=== PATIENT | female | born 1995 | race Two or more races ===

== ENCOUNTER → 2022-08-13 | Emergency (ER) | payer OTHER ==
[~2022-08-13] VITALS: Ht 172.7 cm; Wt 56.7 kg
== END | disposition home or self-care (01) ==
LOC: ER 16:37
DX: O20.9 Hemorrhage in early pregnancy, unspecified (principal); Z3A.01 Less than 8 weeks gestation of pregnancy

== ENCOUNTER 2022-11-17 09:02 | Outpatient (CLI) | payer OTHER | END 2022-11-17 10:04 | disposition home or self-care (01) | LOC: PRENATAL 09:02 | PROVIDERS: ATTEND Obstetrics & Gynecology Maternal & Fetal Medicine | DX: O35.9XX0 Maternal care for (suspected) fetal abnormality and damage, unspecified, not applicable or unspecified (principal); O35.3XX0 Maternal care for (suspected) damage to fetus from viral disease in mother, not applicable or unspecified; Z3A.20 20 weeks gestation of pregnancy ==

== ENCOUNTER 2023-02-13 08:50 | Outpatient (CLI) | payer OTHER | END 2023-02-13 12:08 | disposition home or self-care (01) | LOC: PRENATAL 08:50 | PROVIDERS: ATTEND Obstetrics & Gynecology Maternal & Fetal Medicine | DX: O26.849 Uterine size-date discrepancy, unspecified trimester (principal); O36.8199 Decreased fetal movements, unspecified trimester, other fetus; Z3A.32 32 weeks gestation of pregnancy ==

== ENCOUNTER 2023-03-19 10:44 | Inpatient (IN) | payer OTHER ==
[~2023-03-19] VITALS: Ht 167.6 cm; Wt 69.9 kg
[2023-03-31] MEDS ORDERED: PRENATAL TABLE1 EAC1 PO (06:01)
[2023-03-31 06:53] LABS: URINE APPEARANCE Clear; URINE BILIRRUBIN Negative (NEGATIVE); URINE BLOOD Negative; URINE COLOR Yellow; URINE GLUCOSE Negative (NEGATIVE); URINE LEUKOCYTE Moderate; URINE NITRATE Negative; URINE PROTEIN Negative (NEGATIVE); URINE UROBILINOGEN 0.2 E.U./dl
[2023-03-31 06:54] LABS: URINE EPITHELIAL CELLS 75.9 uL (0.0-38.8)
[2023-03-31 06:55] LABS: HEMATOCRIT 37.2 % (36.0-45.00); HEMOGLOBIN 12.5 g/dL (12.0-15.00); MEAN CELL VOLUME 97.2 fL (80.00-100.00); MEAN CORPUSCULAR HEMOGLOBIN 32.8 pg (27.00-32.0); MEAN CORPUSCULAR HGB CONC 33.7 g/dl (32.0-36.0); PLATELET COUNT 181 K/uL (150-450); RED BLOOD COUNT 3.82 M/uL (4.00-6.00); RED CELL DISTRIBUTION WIDTH 13.2 % (11.5-14.5)
[2023-03-31 07:11] LABS: INR 0.95; PARTIAL THROMBOPLASTIN TIME 26.2 SECONDS (22.0-34.0)
[2023-03-31 07:17] LABS: URINE RBC 0.7 uL (0.0-20.8)
[2023-04-01 00:29] LABS: HEMATOCRIT 36.3 % (36.0-45.00); HEMOGLOBIN 12.5 g/dL (12.0-15.00); MEAN CELL VOLUME 96.6 fL (80.00-100.00); MEAN CORPUSCULAR HEMOGLOBIN 33.2 pg (27.00-32.0); MEAN CORPUSCULAR HGB CONC 34.4 g/dl (32.0-36.0); PLATELET COUNT 199 K/uL (150-450); RED BLOOD COUNT 3.76 M/uL (4.00-6.00); RED CELL DISTRIBUTION WIDTH 13.3 % (11.5-14.5)
== END 2023-04-02 11:26 | disposition home or self-care (01) | DRG 807 ==
LOC: OB/GYN 03-31 05:23 → LDR 03-31 05:23 → OB/GYN 03-31 15:32
PROVIDERS: ADMIT Specialist; ATTEND Specialist
PROC: 10E0XZZ Delivery of Products of Conception, External Approach (ICD-10-PCS; principal; 2023-03-31)
PROC: 4A1HXCZ Monitoring of Products of Conception, Cardiac Rate, External Approach (ICD-10-PCS; 2023-03-31)
PROC: 3E033VJ Introduction of Other Hormone into Peripheral Vein, Percutaneous Approach (ICD-10-PCS; 2023-03-31)
DX: O80 Encounter for full-term uncomplicated delivery (principal); Z37.0 Single live birth; Z3A.39 39 weeks gestation of pregnancy; Z20.822 Contact with and (suspected) exposure to COVID-19

== ENCOUNTER 2025-04-30 10:44 | Emergency (ER) | payer OTHER ==
[~2025-04-30] VITALS: Ht 167.6 cm; Wt 59.0 kg
[~2025-04-30 10:44] MED LIST: PRENATAL TABLE1 EAC1 PO
[2025-04-30] MEDS ORDERED: FAMOTIDINE/PF 20 MG/2 ML VIAL IV ONE ×2 (12:45→16:30)
[2025-04-30] MEDS ORDERED: LACTOBACILLUS ACIDOPHILUS 1 CAP CAP PO ONE (12:45)
[2025-04-30] MEDS ORDERED: ONDANSETRON HCL 2 MG/ML VIAL IV ONE (12:45)
[2025-04-30] MEDS ORDERED: 0.9 % SODIUM CHLORIDE 1,000 ML IV ONE (12:45)
[2025-04-30 13:48] LABS: BASO % 0.2 % (0.1-1.2); EOS # 0.01 (0.04-0.54); EOS % 0.1 % (0.7-7.0); LYMPH # 0.35 (1.18-3.74); LYMPH % 3.0 % (19.3-53.1); MEAN PLATELET VOLUME 10.20 fl (9.4-12.4); MONO # 0.16 (0.24-0.82); MONO % 1.4 % (4.7-12.5); NEUT # 10.91 (1.56-6.13); NEUT % 95.0 % (34.0-71.1); RED CELL DISTRIBUTION WIDTH 12.6 % (11.6-14.4)
[2025-04-30 14:15] LABS: INR 1.02
[2025-04-30 14:59] LABS: ALT/SGPT 15.0 U/L (12-78); AST/SGOT 14.0 U/L (15-37); BILIRUBIN TOTAL 0.48 mg/dL (0.3-1.2); BUN CREA RATIO 14.0 (7.0-25.0); CREATININE SERUM 0.65 mg/dL (0.55-1.02); GFR 106.31; GLOBULINA 4.9 G/DL (2.4-3.5); GLUCOSE FASTING 91.0 mg/dL (65-100); OSMOLALITY SERUM 274.0 MOSM/KG (275-295)
[2025-04-30 15:36] LABS: COVID-19 AG NEGATIVE (NEGATIVE)
[2025-04-30] MEDS ORDERED: PYRIDOXINE HCL25 MG PO (16:27)
[2025-04-30] MEDS ORDERED: PEPCID AC20 MG PO (16:28)
[2025-04-30 17:34] LABS: URINE APPEARANCE Clear; URINE BILIRRUBIN Negative (NEGATIVE); URINE BLOOD Negative; URINE COLOR Yellow; URINE GLUCOSE Negative (NEGATIVE); URINE KETONE 15 (NEGATIVE); URINE LEUKOCYTE Negative; URINE NITRATE Negative; URINE PROTEIN Negative (NEGATIVE); URINE UROBILINOGEN 0.2 E.U./dl
[2025-04-30 17:38] LABS: URINE BACTERIA 556.5 uL (0.0-1933); URINE EPITHELIAL CELLS 5.6 uL (0.0-38.8); URINE WBC 8.6 uL (0.0-23.2)
[2025-04-30 17:56] LABS: URINE CAST 0.00 uL (0.0-1.40); URINE RBC 0.5 uL (0.0-20.8)
== END 2025-04-30 19:01 | disposition home or self-care (01) ==
LOC: ER 10:44
DX: O26.891 Other specified pregnancy related conditions, first trimester (principal); Z3A.12 12 weeks gestation of pregnancy; K52.89 Other specified noninfective gastroenteritis and colitis; R11.10 Vomiting, unspecified; R11.0 Nausea; R53.1 Weakness; A08.8 Other specified intestinal infections; Z20.822 Contact with and (suspected) exposure to COVID-19